=== PATIENT | male | born 1995 | race Caucasian/White ===

== ENCOUNTER 2017-01-26 20:01 | Emergency (ER) | payer BC ==
[~2017-01-26] VITALS: Ht 180.3 cm; Wt 70.4 kg
[2017-01-26 21:17] LABS: ADD MIUA? NO; BILIRUBIN NEGATIVE; BLOOD NEGATIVE; COLOR STRAW ((YELLOW)); GLUCOSE (STRIP) NEGATIVE; KETONES NEGATIVE; LEUKOCYTES NEGATIVE; NITRITE NEGATIVE; PROTEIN (STRIP) NEGATIVE; SPECIFIC GRAVITY 1.009 (1.000-1.030); UCUL ADDED? NO; UROBILINOGEN 0.2 MG/DL (0.2-1.0)
[2017-01-26] MEDS ORDERED: MOTRIN600 MG PO (21:36)
[2017-01-26 21:48] VITALS: BP 131/80
[2017-01-27 14:40] LABS: CHLAMYDIA TRACHOMATIS NEGATIVE; NEISSERIA GONORRHOEAE NEGATIVE
== END 2017-01-26 21:50 | disposition home or self-care (01) ==
LOC: EME 20:01
PROVIDERS: Physician Assistant
DX: N50.811 Right testicular pain (principal)
CPT/HCPCS: 76870; 81003; 87491; 87591; 99281; 99284